=== PATIENT | female | born 1975 | race Caucasian/White ===

== ENCOUNTER 2021-05-01 09:10 | Emergency (ER) | payer BC ==
[2021-05-01 09:35] VITALS: TEMP 99; BMI 27.4
[2021-05-01] MEDS ORDERED: SODIUM CHLORIDE 0.9% 500 ML INFUS.BAG IV ONE (09:46)
[2021-05-01] MEDS ORDERED: ACETAMINOPHEN 1000 MG/100 ML VIAL IVPB ONE (09:46)
[2021-05-01] MEDS ORDERED: MECLIZINE HCL 25 MG TABLET (FP) PO ONE (10:37)
[2021-05-01] MEDS ORDERED: ACETAMINOPHEN INJECTION 100 ML IVPB ONE (11:01)
[2021-05-01] MEDS ORDERED: MECLIZINE HCL 25 MG TABLET (FP) ONE (11:01)
[2021-05-01 11:46] LABS: ALBUMIN 4.1 g/dl (3.4-5.0); BILIRUBIN,TOTAL 0.6 mg/dl (0.2-1); CREATININE 0.8 mg/dl (0.55-1.3); TOT PROT 7.3 g/dl (6.4-8.2)
[2021-05-01 13:49] LABS: BASO % 0.1 % (0-2.0); EOS % 0.6 % (0-4.5); HEMATOCRIT 39.8 % (32.4-45.2); HEMOGLOBIN 13.4 GM/dL (10.7-15.3); LYMPH % 27.3 % (8-40); MCH 30.3 pg (25.7-33.7); MCHC 33.6 g/dl (32.0-36.0); MEAN CELL VOLUME 90.2 fl (80-96); MEAN PLT VOLUME 8.4 fl (7.5-11.1); MONO % 5.8 % (3.8-10.2); NEUT % 66.2 % (42.8-82.8); PLATELET COUNT 349 10^3/uL (134-434); RBC 4.41 M/mm3 (3.60-5.2); RDW 12.6 % (11.6-15.6); WHITE BLOOD COUNT 9.1 K/mm3 (4.0-10.0)
[2021-05-01] MEDS ORDERED: ONDANSETRON 4 MG/2 ML VIAL IVPUSH ONE (14:08)
[2021-05-01] MEDS ORDERED: ONDANSETRON 4 MG/2 ML VIAL ONE (14:22)
[2021-05-01 15:37] VITALS: BP 108/71; PULSE 80
== END 2021-05-01 15:47 | disposition home or self-care (01) ==
LOC: FER 09:10
PROC: 3E033GC Introduction of Other Therapeutic Substance into Peripheral Vein, Percutaneous Approach (ICD-10-PCS; principal; 2021-05-01)
DX: R42 Dizziness and giddiness (principal)
CPT/HCPCS: 36415; 70450-TC; 71045-TC-FY; 80053; 82550; 82553; 84439; 84443; 84484; 85025; 87804; 87807; 93005; 99285-25; C9803; J0131; U0003; U0005

== ENCOUNTER 2021-10-02 09:10 | Emergency (ER) | payer BC ==
[2021-10-02 09:35] VITALS: BP 98/57; PULSE 68; TEMP 98; BMI 29.2
[2021-10-02 11:12] LABS: HEMOGLOBIN 12.8 G/dL (10.7-15.3); MCH 31.1 pg (25.7-33.7); MCHC 34.5 g/dl (32.0-36.0); MEAN CELL VOLUME 90.2 fl (80-96); MEAN PLT VOLUME 7.6 fl (7.5-11.1); PLATELET COUNT 340.6 10^3/uL (134-434); RDW 13.9 % (11.6-15.6); WHITE BLOOD COUNT 8.9 10^3/uL (4.0-10.8)
[2021-10-02 11:24] LABS: ALBUMIN 3.8 g/dl (3.4-5.0); BILIRUBIN,TOTAL 0.5 mg/dl (0.2-1); CREATININE 0.7 mg/dl (0.55-1.3); TOT PROT 6.8 g/dl (6.4-8.2)
== END 2021-10-02 11:37 | disposition home or self-care (01) ==
LOC: FER 09:10
DX: M79.602 Pain in left arm (principal)
CPT/HCPCS: 36415; 80053; 84484; 85025; 93005; 99284-25

== ENCOUNTER 2022-03-11 23:40 | Emergency (ER) | payer BC ==
[2022-03-11 23:49] VITALS: TEMP 98; BMI 29.2
[2022-03-12 01:37] LABS: BASO % 0.4 % (0-2.0); EOS % 1.7 % (0-4.5); HEMATOCRIT 34.4 % (32.4-45.2); HEMOGLOBIN 11.8 GM/dL (10.7-15.3); LYMPH % 50.4 % (8-40); MCH 31.6 pg (25.7-33.7); MCHC 34.2 g/dl (32.0-36.0); MEAN CELL VOLUME 92.4 fl (80-96); MEAN PLT VOLUME 7.9 fl (7.5-11.1); MONO % 8.1 % (3.8-10.2); NEUT % 39.4 % (42.8-82.8); PLATELET COUNT 336 10^3/uL (134-434); RBC 3.72 M/mm3 (3.60-5.2); RDW 12.3 % (11.6-15.6); WHITE BLOOD COUNT 8.8 K/mm3 (4.0-10.0)
[2022-03-12] MEDS ORDERED: METOPROLOL TARTRATE 25 MG TABLET (FP) PO ONE (02:00)
[2022-03-12 02:01] LABS: ALBUMIN 3.4 g/dl (3.4-5.0); BLOOD UREA NITROGEN 17.2 mg/dL (7-18); CALCIUM 8.4 mg/dL (8.5-10.1)
[2022-03-12] MEDS ORDERED: METOPROLOL TARTRATE 25 MG TABLET (FP) ONE (02:02)
[2022-03-12 02:04] LABS: CREATININE 0.9 mg/dL (0.55-1.3)
[2022-03-12 02:05] LABS: BILIRUBIN,TOTAL 0.2 mg/dL (0.2-1); TOT PROT 6.4 g/dl (6.4-8.2)
[2022-03-12] MEDS ORDERED: SODIUM CHLORIDE 1,000 ML IV STA (02:13)
[2022-03-12] MEDS ORDERED: POTASSIUM CHLORIDE TABS 20 MEQ TABLET.ER (FP) PO ONE ×2 (02:13→02:16)
[2022-03-12 03:00] VITALS: BP 102/71; PULSE 64; RESP 16
== END 2022-03-12 03:04 | disposition home or self-care (01) ==
LOC: FER 23:40
PROC: 3E0337Z Introduction of Electrolytic and Water Balance Substance into Peripheral Vein, Percutaneous Approach (ICD-10-PCS; principal; 2022-03-11)
DX: R00.2 Palpitations (principal)
CPT/HCPCS: 36415; 80053; 83735; 84484; 85025; 93005; 99284-25

== ENCOUNTER 2023-06-22 10:50 | Emergency (ER) | payer BC, OTHER ==
[2023-06-22 11:13] VITALS: BP 102/73; PULSE 86; RESP 18; TEMP 97.8; BMI 27.3
[2023-06-22] MEDS ORDERED: CYCLOBENZAPRINE HCL 5 MG TABLET ONE (11:33)
[2023-06-22] MEDS: IBUPROFEN 600 MG TABLET (FP) PO ONE (11:35)
[2023-06-22] MEDS: CYCLOBENZAPRINE HCL 5 MG TABLET PO ONE (11:35)
[2023-06-22] MEDS ORDERED: IBUPROFEN 600 MG TABLET (FP) PO ONE (12:26)
== END 2023-06-22 12:50 | disposition home or self-care (01) ==
LOC: FER 10:50
DX: M54.50 Low back pain, unspecified (principal); S39.012A Strain of muscle, fascia and tendon of lower back, initial encounter; V43.52XA Car driver injured in collision with other type car in traffic accident, initial encounter; Y92.410 Unspecified street and highway as the place of occurrence of the external cause
CPT/HCPCS: 72100-TC-FY; 81025; 99284-25